=== PATIENT | female | born 1995 | race Caucasian/White ===

== ENCOUNTER 2017-05-12 22:22 | Emergency (ER) | payer MEDICAID ==
[2017-05-12 23:28] VITALS: BP 124/69
== END 2017-05-12 23:28 | disposition home or self-care (01) ==
LOC: ED 22:22
DX: T24.232A Burn of second degree of left lower leg, initial encounter (principal); L03.116 Cellulitis of left lower limb; T31.0 Burns involving less than 10% of body surface; X17.XXXA Contact with hot engines, machinery and tools, initial encounter; Y93.89 Activity, other specified; Y92.89 Other specified places as the place of occurrence of the external cause; Y99.8 Other external cause status

== ENCOUNTER 2018-08-14 18:31 | Emergency (ER) | payer BC ==
[~2018-08-14] VITALS: Ht 167.6 cm; Wt 60.3 kg
[2018-08-14 18:40] VITALS: Ht 167.6 cm; Wt 60.3 kg
[2018-08-14 20:12] VITALS: BP 139/96
== END 2018-08-14 20:12 | disposition home or self-care (01) ==
LOC: ED 18:31
DX: S91.202A Unspecified open wound of left great toe with damage to nail, initial encounter (principal); W22.8XXA Striking against or struck by other objects, initial encounter; Y92.9 Unspecified place or not applicable